=== PATIENT | male | born 1995 | race Asian ===

== ENCOUNTER 2017-04-27 21:21 | Emergency (ER) | payer OTHER ==
[~2017-04-27] VITALS: Ht 175.3 cm; Wt 71.2 kg
[2017-04-27 21:36] VITALS: Ht 175.3 cm; Wt 71.2 kg
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
--- NOTE | 2017-04-28 00:26 | RADRPT ---
PROCEDURE: Chest. CLINICAL INDICATION: Chest pain. TECHNIQUE: Single frontal view of the chest was obtained. COMPARISON: None. FINDINGS: The cardiac silhouette is within normal limits. The aortic arch is unremarkable. There is no focal consolidation, vascular congestion or pleural effusion. There is no pneumothorax. IMPRESSION: No evidence for active cardiopulmonary disease. .Dick Pena MD, MD Date Time Electronically viewed and signed by .Dick ePna MD, on 04/28/2017 00:25 .T/
--- NOTE | 2017-04-28 00:26 | RADRPT ---
PROCEDURE: Chest. CLINICAL INDICATION: Chest pain. TECHNIQUE: Single frontal view of the chest was obtained. COMPARISON: None. FINDINGS: The cardiac silhouette is within normal limits. The aortic arch is unremarkable. There is no focal consolidation, vascular congestion or pleural effusion. There is no pneumothorax. IMPRESSION: No evidence for active cardiopulmonary disease. .Dick Pena MD, MD Date Time Electronically viewed and signed by .Dick Pena MD, on 04/28/2017 00:25 .T/
[2017-04-28] MEDS ORDERED: CYCL-319 PO (00:32)
[2017-04-28] MEDS ORDERED: ACET325T33 PO (00:32)
== END 2017-04-28 01:05 | disposition home or self-care (01) ==
LOC: FTE 21:21
DX: S13.4XXA Sprain of ligaments of cervical spine, initial encounter (principal); R07.9 Chest pain, unspecified; V49.40XA Driver injured in collision with unspecified motor vehicles in traffic accident, initial encounter
CPT/HCPCS: 71010; Z7502

== ENCOUNTER 2019-04-20 20:52 | Emergency (ER) | payer SELFPAY ==
[~2019-04-20] VITALS: Ht 175.3 cm; Wt 77.7 kg
[~2019-04-20 20:52] MED LIST: ACET325T33 PO; AMOX1TAB10 PO; CYCL10TA7 PO
[2019-04-20 21:12] VITALS: BP 144/93; PULSE 68; RESP 16; Ht 175.3 cm; Wt 77.7 kg
[2019-04-20] MEDS ORDERED: DIPHTH/TET/ACEL PERTUSS (ADULT) 0.5 ML VIAL IM* ONE (21:30)
== END 2019-04-20 22:32 | disposition home or self-care (01) ==
LOC: FTE 20:52
DX: S30.811A Abrasion of abdominal wall, initial encounter (principal); W54.0XXA Bitten by dog, initial encounter; Y92.9 Unspecified place or not applicable; Z23 Encounter for immunization
CPT/HCPCS: 90471; 90715